=== PATIENT | female | born 1930 | race Caucasian/White ===

== ENCOUNTER 2019-07-27 20:59 | Emergency (ER) | payer MEDICARE ==
[~2019-07-27] VITALS: Ht 165.1 cm; Wt 65.8 kg
[~2019-07-27 20:59] MED LIST: ASPI81CH PO; Aspirin EC81 MG PO; Atrovent Inha12.9 GM; FERSU300 PO; Ferrous Glucon325 M2 PO; GABA100 PO; LOSA25 PO; LOSA50 PO; Levaquin500 MG PO; Lopressor 25 mg25 MG PO; METO25 PO; MIRALAX17 GM PO; Milk Of Ma400 MG/5 M; NAPR500 PO; Norco 5-325 Ta1 EACH PO; Pantoprazole So20 MG PO; Percocet 5-3251 EACH PO; Simvastatin20 MG PO; VARE1 PO; ZOLP5; ZOLP5 PO
[2019-07-27 21:35] LABS: BASOPHILS ABSOLUTE AUTO 0.02 K/mm3 (0.00-0.23); BASOPHILS PERCENT AUTO 0 % (0-2); EOSINOPHILS ABSOLUTE AUTO 0.09 K/mm3 (0.00-0.68); EOSINOPHILS PERCENT AUTO 2 % (0-6); Hematocrit 34.8 % (33.0-51.0); Hemoglobin 11.5 g/dL (11.5-16.0); IMMATURE GRAN ABSOLUTE AUTO 0.18 K/mm3 (0.00-0.10); IMMATURE GRAN PERCENT AUTO 3 % (0-1); LYMPHOCYTES ABSOLUTE AUTO 0.83 K/mm3 (0.84-5.20); LYMPHOCYTES PERCENT AUTO 15 % (21-46); MONOCYTES ABSOLUTE AUTO 0.45 K/mm3 (0.16-1.47); MONOCYTES PERCENT AUTO 8 % (4-13); Mean Corpuscular HGB 30.5 pg (26.0-34.0); Mean Corpuscular Volume 92 fL (80-100); Mean Platelet Volume 10.7 fL (9.1-12.4); NEUTROPHILS PERCENT AUTO 71 % (41-73); NRBC ABSOLUTE 0.08 K/mm3 (0.00-0.02); NRBC Auto 1.5 /100 WBC (0.0-0.2); Platelet Count 115 K/mm3 (150-400); RDW Coefficient Variation 15.9 % (11.7-14.2); RDW Standard Deviation 52.3 fL (35.1-46.3); Red Blood Cell Count 3.77 M/mm3 (3.80-5.20); White Blood Cell Count 5.47 K/mm3 (4.00-11.30)
[2019-07-27 21:54] LABS: Alanine Aminotransfer (ALT/SGP 51 U/L (12-78); Albumin/Globulin Ratio 1.1 (0.8-1.8); Alk Phos 78 U/L (50-136); Anion Gap 8 mmol/L (6-16); Aspartate Aminotrans (AST/SGOT 46 U/L (12-37); Bilirubin, Total 0.7 mg/dL (0.1-1.0); Blood Urea Nitrogen 21 mg/dL (8-24); Bun/Creatinine Ratio 27.2 (12.0-20.0); CO2, Blood 24 mmol/L (21-32); Calcium, Blood 9.7 mg/dL (8.5-10.1); Chloride, Blood 98 mmol/L (98-108); Creatinine, Blood 0.77 mg/dL (0.40-1.00); Globulin, Blood 3.5 g/dL (2.2-4.0); Glomerular Filtration Rate >60 (60-); Glucose, Blood 103 mg/dL (70-99); Potassium, Blood 4.7 mmol/L (3.5-5.5); Sodium, Blood 130 mmol/L (136-145); Total Protein, Blood 7.5 g/dL (6.4-8.2); Troponin I <0.015 ng/mL (0.000-0.040)
[2019-07-28] MEDS ORDERED: Prednisone20 MG PO (03:17)
[2019-07-29] MEDS ORDERED: LOSA25 PO (21:51)
== END 2019-07-28 03:25 | disposition home or self-care (01) ==
LOC: ER 20:59
PROVIDERS: Emergency Medicine
DX: J44.9 Chronic obstructive pulmonary disease, unspecified (principal); E78.5 Hyperlipidemia, unspecified; I10 Essential (primary) hypertension; F17.200 Nicotine dependence, unspecified, uncomplicated; Z79.82 Long term (current) use of aspirin; Z79.899 Other long term (current) drug therapy
CPT/HCPCS: 36415; 71046; 80053; 83880; 84484; 85025; 93005; 93010; 94640; 94644; 96374; 99284-25; J2930

== ENCOUNTER 2019-07-29 19:18 | Inpatient (IN) | payer MEDICARE ==
[~2019-07-29] VITALS: Ht 165.1 cm; Wt 66.8 kg
[~2019-07-29 19:18] MED LIST changes: +Prednisone20 MG PO
[2019-07-29 20:05] LABS: BASOPHILS ABSOLUTE AUTO 0.02 K/mm3 (0.00-0.23); BASOPHILS PERCENT AUTO 0 % (0-2); EOSINOPHILS ABSOLUTE AUTO 0.01 K/mm3 (0.00-0.68); EOSINOPHILS PERCENT AUTO 0 % (0-6); Hematocrit 31.9 % (33.0-51.0); Hemoglobin 10.6 g/dL (11.5-16.0); IMMATURE GRAN ABSOLUTE AUTO 0.17 K/mm3 (0.00-0.10); IMMATURE GRAN PERCENT AUTO 2 % (0-1); LYMPHOCYTES ABSOLUTE AUTO 0.82 K/mm3 (0.84-5.20); LYMPHOCYTES PERCENT AUTO 9 % (21-46); MONOCYTES ABSOLUTE AUTO 0.91 K/mm3 (0.16-1.47); MONOCYTES PERCENT AUTO 11 % (4-13); Mean Corpuscular HGB 30.5 pg (26.0-34.0); Mean Corpuscular HGB Conc 33.2 g/dL (31.5-36.5); Mean Corpuscular Volume 92 fL (80-100); Mean Platelet Volume 10.9 fL (9.1-12.4); NEUTROPHILS ABSOLUTE AUTO 6.77 K/mm3 (1.96-9.15); NEUTROPHILS PERCENT AUTO 78 % (41-73); NRBC ABSOLUTE 0.04 K/mm3 (0.00-0.02); NRBC Auto 0.5 /100 WBC (0.0-0.2); Platelet Count 133 K/mm3 (150-400); RDW Coefficient Variation 16.1 % (11.7-14.2); Red Blood Cell Count 3.48 M/mm3 (3.80-5.20)
[2019-07-29 20:26] LABS: Alanine Aminotransfer (ALT/SGP 55 U/L (12-78); Albumin, Blood 3.6 g/dL (3.4-5.0); Alk Phos 68 U/L (50-136); Anion Gap 6 mmol/L (6-16); Aspartate Aminotrans (AST/SGOT 45 U/L (12-37); Bilirubin, Total 0.4 mg/dL (0.1-1.0); Blood Urea Nitrogen 27 mg/dL (8-24); Bun/Creatinine Ratio 40.1 (12.0-20.0); CO2, Blood 25 mmol/L (21-32); Chloride, Blood 98 mmol/L (98-108); Creatinine, Blood 0.67 mg/dL (0.40-1.00); Globulin, Blood 3.6 g/dL (2.2-4.0); Glomerular Filtration Rate >60 (60-); Glucose, Blood 119 mg/dL (70-99); Sodium, Blood 129 mmol/L (136-145); Total Protein, Blood 7.2 g/dL (6.4-8.2); Troponin I 0.047 ng/mL (0.000-0.040)
[2019-07-29] MEDS ORDERED: LOSA25 PO (21:51)
--- NOTE | 2019-07-29 23:10 | NUR ---
RECEIVED REPORT FROM ELOISA GRANT RN. PT TRANSPORTED TO PCU VIA GURNEY. IN NO ACUTE DISTRESS AT THIS TIME. REPOSITIONED AND MADE COMFORTABLE. DENIES ANY NEEDS AT THIS TIME. FAMILY AT BEDSIDE. WILL CONTINUE TO MONITOR.
--- NOTE | 2019-07-30 01:00 | NUR ---
PT BLADDER SCANNED, PROCEEDED TO VOID MULTIPLE TIMES AFTERWARDS WITHIN A SHORT PERIOD OF TIME.
--- NOTE | 2019-07-30 02:40 | NUR ---
SPOKE TO DR. GRACE REGARDING PT'S BP. NO NEW ORDERS RECEIVED AT THIS TIME.
[2019-07-30 03:55] LABS: Hematocrit 32.3 % (33.0-51.0); Hemoglobin 10.4 g/dL (11.5-16.0); Mean Corpuscular HGB 29.9 pg (26.0-34.0); Mean Corpuscular HGB Conc 32.2 g/dL (31.5-36.5); Mean Corpuscular Volume 93 fL (80-100); Mean Platelet Volume 10.5 fL (9.1-12.4); NRBC ABSOLUTE 0.09 K/mm3 (0.00-0.02); NRBC Auto 1.2 /100 WBC (0.0-0.2); Platelet Count 124 K/mm3 (150-400); RDW Coefficient Variation 16.1 % (11.7-14.2); RDW Standard Deviation 53.3 fL (35.1-46.3); Red Blood Cell Count 3.48 M/mm3 (3.80-5.20); White Blood Cell Count 7.82 K/mm3 (4.00-11.30)
[2019-07-30 04:22] LABS: Troponin I 0.068 ng/mL (0.000-0.040)
[2019-07-30 04:23] LABS: Alanine Aminotransfer (ALT/SGP 43 U/L (12-78); Albumin, Blood 3.5 g/dL (3.4-5.0); Albumin/Globulin Ratio 1.1 (0.8-1.8); Alk Phos 66 U/L (50-136); Anion Gap 7 mmol/L (6-16); Aspartate Aminotrans (AST/SGOT 39 U/L (12-37); Bilirubin, Total 0.4 mg/dL (0.1-1.0); Blood Urea Nitrogen 27 mg/dL (8-24); CO2, Blood 26 mmol/L (21-32); Chloride, Blood 98 mmol/L (98-108); Creatinine, Blood 0.79 mg/dL (0.40-1.00); Globulin, Blood 3.3 g/dL (2.2-4.0); Glomerular Filtration Rate >60 (60-); Glucose, Blood 168 mg/dL (70-99); Potassium, Blood 4.5 mmol/L (3.5-5.5); Sodium, Blood 131 mmol/L (136-145); Total Protein, Blood 6.8 g/dL (6.4-8.2)
--- NOTE | 2019-07-30 06:43 | NUR ---
PT RESTING IN BED COMFORTABLY, IN NO ACUTE DISTRESS. WAS MONITORED EVERY 1-2 HOURS WITH NEEDS MET, DENIES ANY NEEDS AT THIS TIME. BED IN LOW AND LOCKED POSITION, BED ALARM ACTIVATED. DAUGHTER AT THE BEDSIDE.
--- NOTE | 2019-07-30 19:15 | NUR ---
BEDSIDE REPORT FROM MANOLO HERNANDEZ. STUDENT NURSE STILL IN CARE UNTIL 2029. PT APPEARS ANXIOUS R/T INHALERS, UNABLE TO TELL US WHAT SHE TAKES AT HOME BUT SAYS SHE BROUGHT IN HER MEDS AND SOMEONE TOOK THEM. THERE IS NO PHARMACY MED SLIP IN CHART. PT ASKING FOR NIGHT TIME MEDS SO SHE CAN SLEEP. BP ELEVATED, PRN MEDS WILL BE GIVEN. CALL LIGHT IN REACH.
--- NOTE | 2019-07-30 20:13 | NUR ---
SHIFT SUMMARY NO ACUTE CHANGES NOTED FROM ASSESSMENT. PT CONTINUES TO BE HYPERTENSIVE, COZARR INCREASED PER HOSPITALIST, FIRST DOSE GIVEN EARLY PER VERBAL ORDERS, LASIX GIVEN PER EMAR, PT IS VOIDING WNL, 1 ASSIST TO THE BATHROOM, ON ROOM AIR, C/O SOB AND IS REQUESTING HOME INHALERS BUT CAN NOT REMEMBER THE NAME OF THE MEDICATION, Q2 PRN BREATHING TX HAVE BEEN ORDERED, PT STATES THEY DO NOT HELP, O2 SATS REMAIN >92%, PT APPEARS TO BE ANXIOUS AND REFUSES TO TAKE DEEP BREATHS, DEEP BREATHING EXERCISES AND COUGHING WERE STRONGLY ENC AND EDUCATED. PT REMAINS ON RA AT THIS TIME, REPORT GIVEN TO ABNER RN.
--- NOTE | 2019-07-30 20:37 | NUR ---
PERMISSION FOR CARE PT GAVE STUDENT PERMISSION TO PROVIDE CARE ON 07/30/19
--- NOTE | 2019-07-31 07:22 | NUR ---
PT SLEPT JUST FINE AFTER SHE REALIZED SHE HAD GOTTEN HER GABAPENTIN AND THAT THE STEROIDS WERE MAKING IT DIFFICULT TO SLEEP. ONCE MELATONIN ORDER WAS OBTAINED, PT WAS SLEEPING WHEN IT WAS TO BE ADMINISTERED. PT CONTINUED TO SLEEP THROUGH THE NIGHT. VSS. NO NEW COMPLAINTS, NO SIG CHANGES. REPORT GIVEN TO MANOLO HERNANDEZ. BED ALARM IN PLACE AND CALL LIGHT IN REACH.
[2019-07-31] MEDS ORDERED: MELA3 PO (12:11)
[2019-07-31] MEDS ORDERED: AZIT500 PO (12:16)
[2019-07-31] MEDS ORDERED: FURO40 PO (12:17)
[2019-07-31] MEDS ORDERED: AMLO5 PO (12:19)
== END 2019-07-31 13:54 | disposition home or self-care (01) | DRG 291 ==
LOC: ER 19:18 → PCU 22:09
PROVIDERS: Physician Assistant; ADMIT Internal Medicine
DX: I11.0 Hypertensive heart disease with heart failure (principal); I50.31 Acute diastolic (congestive) heart failure; J96.01 Acute respiratory failure with hypoxia; J18.9 Pneumonia, unspecified organism; J44.0 Chronic obstructive pulmonary disease with (acute) lower respiratory infection; J44.1 Chronic obstructive pulmonary disease with (acute) exacerbation; Z66 Do not resuscitate; E78.5 Hyperlipidemia, unspecified; F17.210 Nicotine dependence, cigarettes, uncomplicated; Z95.2 Presence of prosthetic heart valve; Z79.82 Long term (current) use of aspirin
CPT/HCPCS: 36415; 71046; 80053; 82550; 83880; 84484; 85025; 85027; 93005; 93010; 93306; 94640; 94644; 94760; 96374; 96375; 99285-25; A9270-GY; J0456; J0696; J1650; J1940; J2920; J2930; J7050

== ENCOUNTER 2019-08-03 08:55 | Emergency (ER) | payer MEDICARE ==
[~2019-08-03] VITALS: Ht 165.1 cm; Wt 66.7 kg
[~2019-08-03 08:55] MED LIST changes: +AMLO5 PO; +AZIT500 PO; +FURO40 PO; +MELA3 PO
[2019-08-03 09:40] LABS: Hemoglobin 10.9 g/dL (11.5-16.0); Mean Corpuscular HGB 30.4 pg (26.0-34.0); Mean Corpuscular Volume 92 fL (80-100); Mean Platelet Volume 10.6 fL (9.1-12.4); NRBC ABSOLUTE 0.19 K/mm3 (0.00-0.02); NRBC Auto 2.4 /100 WBC (0.0-0.2); Platelet Count 147 K/mm3 (150-400); RDW Coefficient Variation 15.9 % (11.7-14.2); RDW Standard Deviation 52.2 fL (35.1-46.3); Red Blood Cell Count 3.59 M/mm3 (3.80-5.20); White Blood Cell Count 7.82 K/mm3 (4.00-11.30)
[2019-08-03 09:47] LABS: Alanine Aminotransfer (ALT/SGP 49 U/L (12-78); Albumin, Blood 3.3 g/dL (3.4-5.0); Albumin/Globulin Ratio 1.1 (0.8-1.8); Alk Phos 58 U/L (50-136); Anion Gap 9 mmol/L (6-16); Aspartate Aminotrans (AST/SGOT 54 U/L (12-37); Bilirubin, Total 0.7 mg/dL (0.1-1.0); Blood Urea Nitrogen 21 mg/dL (8-24); Bun/Creatinine Ratio 27.8 (12.0-20.0); CO2, Blood 24 mmol/L (21-32); Calcium, Blood 8.8 mg/dL (8.5-10.1); Chloride, Blood 96 mmol/L (98-108); Creatinine, Blood 0.76 mg/dL (0.40-1.00); Glomerular Filtration Rate >60 (60-); Glucose, Blood 99 mg/dL (70-99); Potassium, Blood 4.6 mmol/L (3.5-5.5); Sodium, Blood 129 mmol/L (136-145); Total Protein, Blood 6.3 g/dL (6.4-8.2)
[2019-08-03 09:49] LABS: Troponin I 0.022 ng/mL (0.000-0.040)
[2019-08-03 10:03] LABS: BASOPHILS PERCENT MAN 0 % (0-2); EOSINOPHILS ABSOLUTE MAN 0.15 K/mm3 (0.00-0.68); EOSINOPHILS PERCENT MAN 2 % (0-6); LYMPHOCYTES ABSOLUTE MAN 1.48 K/mm3 (0.84-5.20); LYMPHOCYTES PERCENT MAN 19 % (21-46); METAMYELOCYTE ABSOLUTE MAN 0.15 K/mm3 (0.00-0.00); METAMYELOCYTE PERCENT MAN 2 % (0-0); MONOCYTES ABSOLUTE MAN 0.62 K/mm3 (0.16-1.47); MONOCYTES PERCENT MAN 8 % (4-13); MYELOCYTE ABSOLUTE MAN 0.15 K/mm3 (0.00-0.00); MYELOCYTE PERCENT MAN 2 % (0-0); NEUTROPHILS ABSOLUTE MAN 5.23 K/mm3 (1.96-9.15); SEG NEUTROPHILS PERCENT MAN 67 % (41-73); TOTAL CELLS COUNTED 100
[2019-08-03] MEDS ORDERED: Ativan0.5 MG PO (11:37)
== END 2019-08-03 12:28 | disposition home or self-care (01) ==
LOC: ER 08:55
PROVIDERS: Physician Assistant
DX: F41.9 Anxiety disorder, unspecified (principal); R06.02 Shortness of breath; I10 Essential (primary) hypertension; J44.9 Chronic obstructive pulmonary disease, unspecified; D50.9 Iron deficiency anemia, unspecified; E78.00 Pure hypercholesterolemia, unspecified; Z79.82 Long term (current) use of aspirin; Z79.2 Long term (current) use of antibiotics; Z79.899 Other long term (current) drug therapy; F17.210 Nicotine dependence, cigarettes, uncomplicated
CPT/HCPCS: 36415; 71046; 80053; 83880; 84484; 85025; 93005; 93010; 96374; 99284-25; J2060